=== PATIENT | female | born 1950 | race Caucasian/White ===

== ENCOUNTER 2019-11-27 09:14 | Outpatient (CLI) | payer MEDICARE, BC, SELFPAY ==
--- NOTE | ~2019-11-27 | CT_ITS ---
EXAMINATION: CT chest wo con EXAM DATE: 11/27/2019 09:36 INDICATION: Follow up lung nodules. TECHNIQUE: Spiral CT of the chest without contrast. Axial, coronal and sagittal images were reviewe d. Coronal maximum intensity pixel images of chest reviewed. The dose-length product (DLP) for this examination was 66.19 mGy-cm. The exposure was tailored according to patient size (auto mA exposure control), and iterative reconstruction (ASIR) was used as additional dose reduction technique. Len rison is made to prior examination from 05/09/2019. FINDINGS: There is no interval change in the right upper lobe 7 mm nodule without spiculations. This is most likely granuloma. A longer interval 1 year follow-up low-dose chest CT is recommended. There is large right lower lobe calcified granuloma. No new nodules. There is mild emphysema. There are no pleural or pericardial effusions. Tracheobronchial tree is patent. There is no mediastinal, fam r or axillary lymphadenopathy. There is no pneumothorax. Heart is upper limits of normal in size. There is mild coronary arterial calcification, arterial sclerosis. Cholecystectomy clips. There i s thoracic spondylosis without osteoblastic or osteolytic lesions identified. IMPRESSION: 1. Stable right upper lobe nodule likely noncalcified granulomas; recommend 1 year follow-up low-dos e chest CT. 2. Mild emphysema. Reviewed, dictated and finalized at location A. IMPRESSION: 1. Stable right upper lobe nodule likely noncalcified granulomas; recommend 1 year follow-up low-dose chest CT. 2. Mild emphysema.
== END 2019-11-27 09:15 | disposition home or self-care (01) ==
PROVIDERS: PCP Internal Medicine; Visit Provider Internal Medicine
DX: R91.1 Solitary pulmonary nodule (principal); J43.9 Emphysema, unspecified
CPT/HCPCS: 71250

== ENCOUNTER 2020-12-06 08:09 | Outpatient (CLI) | payer MEDICARE, BC, SELFPAY ==
--- NOTE | ~2020-12-06 | CT_ITS ---
EXAMINATION:CT diagnostic chest wo con DATE: 12/06/2020 08:32 INDICATION: Lung nodule. TECHNIQUE: Computed tomography (CT) of the chest was performed without intravenous contrast. Automate d exposure control and iterative reconstruction technique were employed. The dose-length product (DLP ) was 139.79 mGy-cm. COMPARISON: Chest CT 11/27/2019, 05/09/2019 FINDINGS: There is mild emphysema. There is mild scarring at the lung apices. There is a 7 mm nodule in right upper lobe, stable from 05/09/2019. Calcified right lung nodules and calcified hilar and med iastinal lymph nodes are consistent with old granulomatous. There is mild atelectasis bilaterally. No pleural effusion. The heart size is normal. No pericardial effusion. There are coronary artery calci fications. Calcifications in the spleen are consistent with old granulomatous disease. There are atkinson ges of anterior fusion procedure in cervical spine. There is mild thoracic spondylosis. IMPRESSION: 1. 7 mm pulmonary nodule, stable from 05/09/2019, likely benign. 2. Mild emphysema. Reviewed, dictated and finalized at location B.
== END 2020-12-06 08:10 | disposition home or self-care (01) ==
PROVIDERS: PCP Internal Medicine; Visit Provider Internal Medicine
DX: R91.1 Solitary pulmonary nodule (principal); J43.9 Emphysema, unspecified
CPT/HCPCS: 71250

== ENCOUNTER 2021-12-09 10:51 | Outpatient (CLI) | payer MEDICARE, BC, SELFPAY ==
--- NOTE | ~2021-12-09 | CT_ITS ---
EXAMINATION: CT diagnostic chest wo con DATE: 12/09/2021 11:05 INDICATION: Follow-up pulmonary nodule TECHNIQUE: Computed tomography (CT) of the chest was performed without intravenous contrast. The dose -length product was 67.97 mGy-cm. Automated exposure control and iterative reconstruction technique w ere employed. COMPARISON: Comparison to multiple prior studies sequentially, with oldest reviewed study dated 04/16. FINDINGS: Heart size is normal. There is evidence for chronic granulomatous disease. There is atheros clerosis of the aorta and coronary arteries. There are cholecystectomy clips. There are calcified gra nulomas in the spleen. Large calcified granuloma present in the right lower lobe. There is an 8 x 7 m m right upper lobe nodule, unchanged dating back to 05/09/2019. No endobronchial lesions. Mild emphys albino. No pneumothorax. There is right lower lobe at atelectasis/scarring, unchanged. No new pulmonary nodules or masses. IMPRESSION: 1. Stable 8 mm right upper lobe nodule, likely benign. Reviewed, dictated and finalized at location A.
== END 2021-12-09 10:52 | disposition home or self-care (01) ==
LOC: ANHIMG 10:52
PROVIDERS: PCP Internal Medicine; Visit Provider Physician Assistant Medical
DX: R91.1 Solitary pulmonary nodule (principal); Z87.891 Personal history of nicotine dependence; I70.0 Atherosclerosis of aorta; I25.10 Atherosclerotic heart disease of native coronary artery without angina pectoris
CPT/HCPCS: 71250